=== PATIENT | female | born 1965 | race Caucasian/White ===

== ENCOUNTER 2025-05-23 00:18 | Emergency (ER) | payer SELFPAY ==
[2025-05-23 01:20] LABS: Glucose, Urine (Dipstick) Normal (Negative); Leukocyte Negative (Negative); Protein, Urine (Dipstick) 15 mg/dl (Neg-Trace); Specific Gravity, Urine 1.015 (1.005-1.030)
[2025-05-23 01:23] LABS: Bacteria/HPF None Seen HPF (None Seen); CAUTI Indications for Culture Pelvic or flank pain; RBC/HPF None Seen HPF (0-3); WBC/HPF None Seen HPF (0-3)
[2025-05-23 01:24] LABS: Urine Culture Reflex No No
[2025-05-23] MEDS ORDERED: Ondansetron PF 4 MG/2 ML Vial ONE (02:20)
[2025-05-23 02:38] LABS: #Basophils 0.11 10x3/uL (0.0-0.2); #Eosinophils 0.11 10x3/uL (0.0-0.5); #Monocytes 0.71 10x3/uL (0.0-1.1); #Neutrophils 10.36 10x3/uL (1.5-8.4); %Basophils 0.9 % (0.0-2.0); %Eosinophils 0.9 % (0.0-6.0); %Lymphocytes 11.5 % (18.0-47.0); %Monocytes 5.5 % (0.0-10.0); %Neutrophils 80.7 % (40.0-75.0); Hematocrit 44.4 % (34.9-44.5); Hemoglobin 15.3 g/dL (12.0-15.5); Mean Corpuscular Hemoglobin 32.3 pg (27.0-33.0); Mean Corpuscular Volume 93.7 fL (81.6-98.3); Platelet Count 232 10x3/uL (150-450); Red Blood Cell (RBC) Count 4.74 10x6/uL (3.90-5.03); White Blood Cell (WBC) Count 12.84 10x3/uL (3.5-10.5)
[2025-05-23 02:52] LABS: Anion Gap 14 mmol/L (10-20); BUN (Urea Nitrogen) 11 mg/dL (9.8-20.1); Calc. Creatinine Clearance 0 mL/min (70-130); Calcium 9.0 mg/dL (7.8-10.44); Carbon Dioxide 22 mmol/L (22-29); Chloride 105 mmol/L (98-107); Glucose 149 mg/dL (70-105); Potassium 4.4 mmol/L (3.5-5.1); Sodium 137 mmol/L (136-145)
[2025-05-23] MEDS ORDERED: predniSONE 20 MG TAB ONE (04:24)
[2025-05-23] MEDS ORDERED: Gabapentin 300 MG CAP ONE (04:25)
[2025-05-23] MEDS ORDERED: Iopamidol 300 61% 100 ML VIAL FS ONE (09:19)
== END 2025-05-23 04:30 | disposition home or self-care (01) ==
LOC: CSHERS 00:18
DX: M54.16 Radiculopathy, lumbar region (principal)
CPT/HCPCS: 74177; 80048; 81001; 83605; 85025; 96374; 96375; J2270; J2405; J7512; Q9967

== ENCOUNTER 2025-05-24 13:11 | Emergency (ER) | payer SELFPAY ==
[2025-05-24 14:08] LABS: #Basophils 0.06 10x3/uL (0.0-0.2); #Eosinophils Less than 0.03 10x3/uL (0.0-0.5); #Monocytes 0.34 10x3/uL (0.0-1.1); #Neutrophils 11.62 10x3/uL (1.5-8.4); %Basophils 0.4 % (0.0-2.0); %Eosinophils 0.1 % (0.0-6.0); %Lymphocytes 7.7 % (18.0-47.0); %Monocytes 2.5 % (0.0-10.0); %Neutrophils 86.9 % (40.0-75.0); Hematocrit 46.4 % (34.9-44.5); Hemoglobin 15.3 g/dL (12.0-15.5); Mean Corpuscular Hemoglobin 31.3 pg (27.0-33.0); Mean Corpuscular Volume 94.9 fL (81.6-98.3); Platelet Count 217 10x3/uL (150-450); Red Blood Cell (RBC) Count 4.89 10x6/uL (3.90-5.03); White Blood Cell (WBC) Count 13.38 10x3/uL (3.5-10.5)
[2025-05-24 14:26] LABS: ALT (SGPT) 24 U/L (Less than 34); AST (SGOT) 23 U/L (11-34); Albumin 4.3 g/dL (3.1-4.5); Alkaline Phosphatase 69 U/L (40-110); Anion Gap 14 mmol/L (10-20); BUN (Urea Nitrogen) 13 mg/dL (9.8-20.1); Bilirubin, Total 0.7 mg/dL (0.3-1.2); Calc. Creatinine Clearance 0 mL/min (70-130); Calcium 8.9 mg/dL (7.8-10.44); Carbon Dioxide 28 mmol/L (22-29); Chloride 100 mmol/L (98-107); Globulin 3.7 g/dL (2.4-3.5); Glucose 162 mg/dL (70-105); Lipase 20 U/L (8-78); Potassium 4.9 mmol/L (3.5-5.1); Sodium 137 mmol/L (136-145)
[2025-05-24 14:42] LABS: Glucose, Urine (Dipstick) Normal (Negative); Leukocyte Negative (Negative); Protein, Urine (Dipstick) 15 mg/dl (Neg-Trace); Specific Gravity, Urine 1.015 (1.005-1.030)
[2025-05-24 14:55] LABS: Bacteria/HPF 1+ HPF (None Seen); CAUTI Indications for Culture Pelvic or flank pain; RBC/HPF 0-3 HPF (0-3); WBC/HPF 0-3 HPF (0-3)
[2025-05-24 14:58] LABS: Urine Culture Reflex No No
[2025-05-24] MEDS ORDERED: Ondansetron PF 4 MG/2 ML Vial ONE (15:36)
[2025-05-24] MEDS ORDERED: Ketorolac Tromethamine 30 MG (1 mL) VIAL ONE (15:37)
== END 2025-05-24 16:17 | disposition home or self-care (01) ==
LOC: CSHERS 13:11
DX: R10.12 Left upper quadrant pain (principal); E03.9 Hypothyroidism, unspecified
CPT/HCPCS: 71045; 74177; 80053; 81001; 83690; 83880; 85025; 96374; 96375; J1885; J2405